=== PATIENT | female | born 1990 | race Caucasian/White ===

== ENCOUNTER 2017-06-09 15:21 | Emergency (ER) | payer SELFPAY ==
[~2017-06-09] VITALS: Ht 157.5 cm; Wt 103.5 kg
[2017-06-09 15:31] VITALS: BP 147/86
== END 2017-06-09 16:18 | disposition home or self-care (01) ==
LOC: ED 16:12
DX: L03.116 Cellulitis of left lower limb (principal)
CPT/HCPCS: 99283

== ENCOUNTER 2020-10-20 22:07 | Emergency (ER) | payer MEDICAID ==
[~2020-10-20] VITALS: Ht 160 cm; Wt 101.9 kg
[2020-10-20 22:11] VITALS: BP 127/75
[2020-10-20] MEDS ORDERED: LIDOCAINE-MPF 1%, 5ML INFIL ONE (23:00)
[2020-10-20] MEDS ORDERED: LIDOCAINE-MPF 1%, 5ML ONE (23:16)
--- NOTE | 2020-10-20 23:55 | NUR ---
ASSUMED PT CARE FOR CONSCIOUSS SEDATION ONLY AT THIS TIME.
--- NOTE | 2020-10-21 | NUR ---
CONSCIOUSS SEDATION PROCEDURE TO START AFTER PT WAS UNABLE TO TOLERATE LOCAL NUMBING. CONSENTS SIGNED, H&P COMPLETED, PT ON CR MONITOR, AND SAFETY EQUIPMENT AT BEDSIDE, PT ON O2 NC 2LPM AND ETCO2 IN PLACE. SEE V/S SHEET PRINT OUT. MEDS GIVEN, TOTAL OF 290MG OF PROPOFOL OVER 15 MINUTES USED FOR FULL SEDATION. PT TOLERATED WELL, WITH NO AWARENESS OF THE PROCEDURE. PT RECOVERED AND FULLY WOKE UP AT 0030. PTS SIGNIFICANT OTHER IS AT THE BEDSIDE NOW AFTER SHE'S WOKEN UP. AND PA ARE AWARE AND D/C PAPERS BEING PREPARED.
[2020-10-21] MEDS ORDERED: LIDOCAINE-MPF 1%, 5ML ONE (00:03)
[2020-10-21] MEDS ORDERED: PROPOFOL 10 MG/ML, 20ML ONE ×2 (00:03→00:10)
[2020-10-21] MEDS ORDERED: ACETAMINOPHEN 500 MG TABLET ONE (00:57)
[2020-10-21] MEDS ORDERED: ACETAMINOPHEN 500 MG TABLET PO ONE (01:00)
[2020-10-21] MEDS ORDERED: PROPOFOL 10 MG/ML, 20ML IVPush ONE ×2 (01:00)
--- NOTE | 2020-10-21 01:07 | NUR ---
PT MEDICATED AT THIS TIME PRIOR TO DEPARTURE AND PT TOLERATED WELL. PT NOW ABLE TO SIT PROPERLY AND STATES THAT THE PAIN IS 100% BETTER EVEN THOUGH SHE STILL HAS HEAVY PAIN. PT ABLE TO STAND AND WALK TO WHEELCHAIR. PT GIVEN F/U AND D/C INSTRUCTIONS AND PRESCRIPTIONS AND SHE V/U.
== END 2020-10-21 01:29 | disposition home or self-care (01) ==
LOC: ED 22:37
DX: O23.591 Infection of other part of genital tract in pregnancy, first trimester (principal); L02.31 Cutaneous abscess of buttock; Z87.891 Personal history of nicotine dependence; Z3A.12 12 weeks gestation of pregnancy
CPT/HCPCS: 10060; 99152; 99285; J2704